=== PATIENT | male | born 1955 | race Caucasian/White ===

== ENCOUNTER 2019-12-28 11:15 | Outpatient (CLI) | payer MEDICARE, OTHER ==
--- NOTE | 2019-12-28 12:45 | RAD ---
Exam:Right foot 3 views HISTORY: Pain along the lateral aspect. COMPARISON: None FINDINGS: Lisfranc alignment is maintained. 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 With regards to the fifth digit no fracture, cortical irregularity or periosteal reaction. IMPRESSION: No acute abnormality with regards to the fifth digit. 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
== END 2019-12-28 11:16 | disposition home or self-care (01) ==
LOC: BICRAD 11:15
PROVIDERS: ATTEND Podiatrist
DX: M79.671 Pain in right foot (principal)